=== PATIENT | male | born 1990 | race Caucasian/White ===

== ENCOUNTER 2016-10-06 18:51 | Emergency (ER) | payer BC, OTHER ==
[~2016-10-06] VITALS: Ht 180.3 cm; Wt 79.4 kg
[2016-10-06 19:08] VITALS: Ht 180.3 cm; Wt 79.4 kg
[2016-10-06] MEDS ORDERED: KETOROLAC TROMETHAMINE 30 MG/ML VIAL IV STA (20:25)
[2016-10-06] MEDS ORDERED: VANCOMYCIN 1GM/270ML NSS IV STA (20:25)
[2016-10-06] MEDS ORDERED: CEFTRIAXONE SOD INJ 1 GM ADDVIAL IV STA (20:25)
[2016-10-06] MEDS ORDERED: LORAZEPAM 0.5 MG TAB SL STA (20:25)
[2016-10-06] MEDS ORDERED: SODIUM CHLORIDE 0.9% 1000ML 1,000 ML IV STA (20:25)
[2016-10-06] MEDS ORDERED: VANCOMYCIN INJ 1,600 MG in SODIUM CHLORIDE 0.9% 500ML 500 ML IV STA (20:45)
--- NOTE | 2016-10-06 20:46 | EMERGENCY ROOM VISIT NOTE ---
ED Visit Note First contact with patient: 20:05 The patient was seen and examined with Paola Kerns PA-C. I agree with the history, physical and findings. Please see the note for disposition and details.
[2016-10-06 21:08] LABS: BASO % 0.4 %; BASO ABS # 0.04 K/uL (0-0.2); COMPLETE YES; EOS % 0.4 %; HEMATOCRIT 45.2 % (42-52); IG% 0.3 %; LYMPH % 15.7 %; LYMPH ABS # 1.77 K/uL (1.2-3.4); MEAN CELL VOLUME 85.9 fL (80-100); MEAN CORPUSCULAR HEMOGLOBIN 29.7 pg (25-34); MEAN CORPUSCULAR HGB CONC 34.5 g/dl (32-36); MEAN PLATELET VOLUME 9.2 fL (7.4-10.4); MONO % 7.3 %; NEUT % 75.9 %; PLATELET COUNT 328 K/uL (130-400); RED BLOOD COUNT 5.26 M/uL (4.7-6.1)
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
[2016-10-06 21:26] LABS: BUN/CREATININE RATIO 10.1 (10-20); CALCIUM 8.6 mg/dl (8.5-10.1); CREATININE 0.83 mg/dl (0.60-1.40); POTASSIUM 3.6 mmol/L (3.5-5.1)
--- NOTE | 2016-10-06 22:10 | DIAGNOSTIC IMAGING REPORT ---
CHEST 2 VIEWS ROUTINE CLINICAL HISTORY: Left-sided chest pain. COMPARISON STUDY: Chest radiograph October 20, 2010. FINDINGS: Lung volumes are normal. No pneumothorax or pleural effusion is present. No consolidation is identified. Cardiomediastinal silhouette is normal. Pulmonary vascularity is normal. Apparent increased density of visualized skeletal structures is noted. IMPRESSION: 1. No acute cardiopulmonary findings. 2. Apparent increased density of visualized skeletal structures is likely within normal limits. A diffuse marrow process could appear similar although is considered less likely. Electronically signed by: Lalit Hastings M.D. 10/06/2016 10:08 PM Dictated Date/Time: 10/06/2016 10:07 PM
[2016-10-07] MEDS ORDERED: NICOTINE 21 MG/24 HR TDSY TD STA (00:09)
[2016-10-07] MEDS ORDERED: BACITRACIN OINT 15 GM TUBE EXT STA (00:18)
[2016-10-07] MEDS ORDERED: SODIUM CHLORIDE 0.9% 1000ML 1,000 ML IV STA (00:19)
[2016-10-07] MEDS ORDERED: MoRPHine SULFATE 4 MG/ML 1 ML CARP\\VIAL IV PRN (01:15)
[2016-10-07 02:19] VITALS: BP 160/99; PULSE 114; O2SAT 96
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
== END 2016-10-07 02:19 | disposition short-term general hospital (02) ==
LOC: C.EDB 18:52
DX: T21.21XA Burn of second degree of chest wall, initial encounter (principal); T22.292A Burn of second degree of multiple sites of left shoulder and upper limb, except wrist and hand, initial encounter; T20.10XA Burn of first degree of head, face, and neck, unspecified site, initial encounter; T65.891A Toxic effect of other specified substances, accidental (unintentional), initial encounter; T32 Corrosions classified according to extent of body surface involved; X58.XXXA Exposure to other specified factors, initial encounter; F17.200 Nicotine dependence, unspecified, uncomplicated